=== PATIENT | female | born 1950 | race Caucasian/White ===

== ENCOUNTER 2016-06-17 16:26 | Emergency (ER) | payer OTHER ==
[2016-06-17] MEDS ORDERED: NS 1,000 ML IV ONE (16:32)
--- NOTE | 2016-06-17 16:38 | CPEKG ---
Heart Rate: 67 RR Interval: 896 P-R Interval: 152 QRSD Interval: 120 QT Interval: 472 QTC Interval: 499 P [place]: 66 QRS [place]: -55 T Wave [place]: 61 EKG Severity - ABNORMAL ECG - EKG Impression: SINUS RHYTHM EKG Impression: MULTIPLE VENTRICULAR PREMATURE COMPLEXES EKG Impression: INCOMPLETE LEFT BUNDLE BRANCH BLOCK EKG Impression: LEFT VENTRICULAR HYPERTROPHY EKG Impression: ANTERIOR Q WAVES, POSSIBLY DUE TO LVH Electronically Signed By: Shilo Queen 17-Jun-2016 16:54:04
--- NOTE | 2016-06-17 16:41 | EDPHY ---
H & P Time Seen by Provider: 06/17/16 16:39 HPI/ROS: CHIEF COMPLAINT: Epigastric pain HISTORY OF PRESENT ILLNESS: The patient presents to the emergency department by paramedics with acute epigastric pain and nausea. The patient has a history of coronary artery disease diagnosed by angiogram 2 years ago. It was not flow limiting and no intervention was undertaken. Patient was given nitroglycerin by paramedics with minimal improvement of her symptoms. In the ED she states that the severity of her symptoms have markedly decreased spontaneously. 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 The patient denies pleuritic chest pain. She complains of some right upper quadrant pain currently. She reports no prior history of cholelithiasis or abdominal surgery. The patient denies asymmetric calf pain or swelling. She denies fever or additional complaints. REVIEW OF SYSTEMS: A comprehensive 10 point review of systems is otherwise negative aside from elements mentioned in the history of present illness. Source: Patient Exam Limitations: No limitations - Family History Significant Family History: No pertinent family hx - Social History Smoking Status: Never smoked - Physical Exam Exam: General Appearance: Alert, no distress Eyes: Pupils equal and round no pallor or injection ENT, Mouth: Mucous membranes moist Respiratory: There are no retractions, lungs are clear to auscultation Cardiovascular: Regular rate and rhythm Gastrointestinal: Minimal epigastric tenderness to palpation Neurological: A&O, normal motor function, normal sensory exam, normal cranial nerves Skin: Warm and dry, no rashes Musculoskeletal: Neck is supple nontender Extremities: symmetrical, full range of motion Constitutional: Initial Vital Signs Temperature (C) 36.5 C 06/17/16 17:17 Heart Rate 68 06/17/16 17:17 Respiratory Rate 14 06/17/16 17:17 Blood Pressure 168/98 H 06/17/16 17:17 O2 Sat (%) 96 06/17/16 17:17 O2 Delivery Mode Room Air Medical Decision Making - Diagnostics EKG Interpretation: EKG: Complete interpretation has been separately recorded in the [facility] archive. Summary impression: Sinus rhythm, multiple unifocal PVCs, nonspecific ST T wave changes noted. Imaging Results: Imaging Impressions Abdomen Ultrasound 06/17/16 16:42 Impression: Negative right upper quadrant ultrasound. Specifically, negative for cholelithiasis. Results called and discussed with Shilo Queen M.D. on 06/17/2016 at 17:44 ED Course/Re-evaluation: The patient presents to the ED after an episode of epigastric pain. The patient does have a history of noncritical coronary artery disease diagnosed by angiogram 2 years ago. She has had at least 1 negative stress test since that angiogram. The patient has no history of exertional chest pain or shortness of breath. The patient presents to the ED after an episode of resolved epigastric pain with some radiation to her back. The patient initially had some mild right upper quadrant tenderness. Her liver function test and right upper quadrant ultrasound were normal. The patient had EKGs x2 done in the emergency department which demonstrated no evidence of acute ST segment elevation or ST segment depression. She does have known PVCs. The patient also had 2 troponins which were negative. I discussed the treatment options with the patient. I have explained that we have not fully excluded progressive underlying coronary artery disease. The patient was offered admission to the hospital for observation this evening however she prefers to go home and follow up with her regular resort manager in [place] tomorrow. She is comfortable returning to the ED for any recurrent chest pain, shortness of breath, abdominal pain, worrisome symptoms or other concerns. Differential Diagnosis: Differential diagnosis considered includes dyspepsia, acute coronary syndrome, pericarditis, cholecystitis, pancreatitis - Data Points Laboratory Results: Laboratory Results 06/17/16 16:35 06/17/16 16:35 06/17/16 06/17/16 06/17/16 16:45 16:35 16:35 WBC 7.69 10^3/uL 10^3/uL (3.80-9.50) RBC 4.91 10^6/uL 10^6/uL (4.18-5.33) Hgb 14.5 g/dL g/dL (12.6-16.3) Hct 43.4 % % (38.0-47.0) MCV 88.4 fL fL (81.5-99.8) MCH 29.5 pg pg (27.9-34.1) MCHC 33.4 g/dL g/dL (32.4-36.7) RDW 13.1 % % (11.5-15.2) Plt Count 234 10^3/uL 10^3/uL (150-400) MPV 11.0 fL fL (8.7-11.7) Neut % (Auto) 67.7 % % (39.3-74.2) Lymph % (Auto) 20.7 % % (15.0-45.0) [place] % (Auto) 8.2 % % (4.5-13.0) Eos % (Auto) 2.3 % % (0.6-7.6) Baso % (Auto) 0.7 % % (0.3-1.7) Nucleat RBC Rel Count 0.0 % % (0.0-0.2) Absolute Neuts (auto) 5.21 10^3/uL 10^3/uL (1.70-6.50) Absolute Lymphs (auto) 1.59 10^3/uL 10^3/uL (1.00-3.00) Absolute Monos (auto) 0.63 10^3/uL 10^3/uL (0.30-0.80) Absolute Eos (auto) 0.18 10^3/uL 10^3/uL (0.03-0.40) Absolute Basos (auto) 0.05 10^3/uL 10^3/uL (0.02-0.10) Absolute Nucleated RBC 0.00 10^3/uL 10^3/uL (0-0.01) Immature Gran % 0.4 % % (0.0-1.1) Immature Gran # 0.03 10^3/uL 10^3/uL (0.00-0.10) Sodium 138 mEq/L mEq/L (134-144) Potassium 4.3 mEq/L mEq/L (3.5-5.2) Chloride 105 mEq/L mEq/L (97-110) Carbon Dioxide 22 mEq/l mEq/l (22-31) Anion Gap 11 mEq/L mEq/L (8-16) BUN 20 mg/dL mg/dL (7-23) Creatinine 0.6 mg/dL mg/dL (0.6-1.0) Estimated GFR > 60 Glucose 97 mg/dL mg/dL (70-100) Calcium 9.6 mg/dL mg/dL (8.5-10.4) Total Bilirubin 0.9 mg/dL mg/dL (0.1-1.4) Conjugated Bilirubin 0.4 mg/dL mg/dL (0.0-0.5) Unconjugated Bilirubin 0.5 mg/dL mg/dL (0.0-1.1) AST 31 IU/L IU/L (14-46) ALT 42 IU/L IU/L (9-52) Alkaline Phosphatase 77 IU/L IU/L (38-126) Troponin I < 0.012 ng/mL ng/mL < 0.012 ng/mL ng/mL (0-0.034) (0-0.034) Total Protein 8.1 g/dL g/dL (6.3-8.2) Albumin 4.6 g/dL g/dL (3.5-5.0) Lipase 216.0 IU/L IU/L (23-300) Medications Given: Discontinued Medications Sodium Chloride (Ns) 1,000 mls @ 0 mls/hr IV ONCE ONE PRN Reason: Wide Open Stop: 06/17/16 16:33 Last Admin: 06/17/16 16:49 Dose: 1,000 mls Departure - Departure Disposition: Home, Routine, Self-Care Clinical Impression: Epigastric abdominal pain Condition: Good Instructions: Chest Pain (ED) Additional Instructions: 1. Based upon the testing done in the Emergency Department today we see no evidence of a heart attack. 2. We are unable to fully exclude coronary artery disease based upon the testing available in the Emergency Department. 3. For this reason, we would like you to be seen by cardiology for consideration of additional testing within the next 3 days. 4. Please contact your resort manager tomorrow morning to schedule a follow-up visit. Their offices are typically open from 8:30am-5pm M-F. 5. Please return to the Emergency Department immediately for any recurrent chest pain, difficulty breathing or other concerns.
[2016-06-17 16:47] LABS: % IMMATURE GRANULYOCYTES 0.4 % (0.0-1.1); ABSOLUTE IMMATURE GRANULOCYTES 0.03 10^3/uL (0.00-0.10); ADD DIFF? NO; ADD MORPH? NO; ADD SCAN? NO; ATYPICAL LYMPHOCYTE FLAG 10 (0-99); FRAGMENT RBC FLAG 0 (0-99); HEMATOCRIT 43.4 % (38.0-47.0); HEMOGLOBIN 14.5 g/dL (12.6-16.3); LEFT SHIFT FLG 0 (0-99); LIPEMIA HEMOLYSIS FLAG 80 (0-99); MEAN CELL HEMOGLOBIN 29.5 pg (27.9-34.1); MEAN CELL HEMOGLOBIN CONCENTR. 33.4 g/dL (32.4-36.7); MEAN CELL VOLUME 88.4 fL (81.5-99.8); PLATELET CLUMPS FLAG 0 (0-99); PLATELET COUNT 234 10^3/uL (150-400); RED BLOOD CELL COUNT 4.91 10^6/uL (4.18-5.33); RED CELL DISTRIBUTION WIDTH 13.1 % (11.5-15.2)
[2016-06-17 17:07] LABS: ALANINE AMINOTRANSFERASE 42 IU/L (9-52); ALBUMIN 4.6 g/dL (3.5-5.0); ALKALINE PHOSPHATASE 77 IU/L (38-126); ANION GAP 11 mEq/L (8-16); ASPARTATE AMINOTRANSFERASE 31 IU/L (14-46); BILIRUBIN,TOTAL 0.9 mg/dL (0.1-1.4); BILIRUBIN-CONJUGATED 0.4 mg/dL (0.0-0.5); BILIRUBIN-UNCONJUGATED 0.5 mg/dL (0.0-1.1); CALCIUM 9.6 mg/dL (8.5-10.4); CARBON DIOXIDE 22 mEq/l (22-31); CHLORIDE 105 mEq/L (97-110); CREATININE 0.6 mg/dL (0.6-1.0); GLOMERULAR FILTRATION RATE > 60; GLUCOSE 97 mg/dL (70-100); POTASSIUM 4.3 mEq/L (3.5-5.2); SODIUM 138 mEq/L (134-144); TOTAL PROTEIN 8.1 g/dL (6.3-8.2)
[2016-06-17 17:18] LABS: TROPONIN I < 0.012 ng/mL (0-0.034)
[2016-06-17 17:20] VITALS: O2SAT 96
--- NOTE | 2016-06-17 19:22 | CPEKG ---
Heart Rate: 65 RR Interval: 923 P-R Interval: 152 QRSD Interval: 116 QT Interval: 468 QTC Interval: 487 P [place]: 65 QRS [place]: -53 T Wave [place]: 31 EKG Severity - ABNORMAL ECG - EKG Impression: SINUS RHYTHM EKG Impression: MULTIPLE VENTRICULAR PREMATURE COMPLEXES EKG Impression: LEFT ANTERIOR FASCICULAR BLOCK EKG Impression: LEFT VENTRICULAR HYPERTROPHY Electronically Signed By: Shilo Queen 17-Jun-2016 22:41:08
[2016-06-17] MEDS ORDERED: ONDANSETRON 4MG PREPACK#2 BTL TAKEHOME ONE ×2 (20:36→20:38)
[2016-06-17 20:43] VITALS: BP 135/78; PULSE 67; RESP 18; TEMP 97.9
== END 2016-06-17 20:47 | disposition home or self-care (01) ==
DX: R10.13 Epigastric pain (principal)